=== PATIENT | female | born 2005 | race Caucasian/White ===

== ENCOUNTER 2023-11-07 18:23 | Emergency (ER) | payer OTHER ==
[2023-11-07 18:49] VITALS: BP 142/71; RESP 19; TEMP 99.1; BMI 27.6
[2023-11-07] MEDS ORDERED: AMOX TR/POT CLAV 875MG/125MG TABLETS (FP) ONE (20:47)
[2023-11-07] MEDS: AMOX TR/POT CLAV 875MG/125MG TABLETS (FP) PO ONE (20:48)
[2023-11-07] MEDS: OXYMETAZOLINE 0.05% NASAL SOLUTION 15 ML BOTTLE NS ONE (21:15)
[2023-11-07] MEDS: DEXTROMETHORPHAN/PROMETHAZINE 15 MG/6.25 MG/5 ML SYRUP PO ONE (21:16)
[2023-11-07 21:34] VITALS: PULSE 89
== END 2023-11-07 21:35 | disposition home or self-care (01) ==
LOC: JERFT 18:23
DX: J40 Bronchitis, not specified as acute or chronic (principal); J98.11 Atelectasis; R05.9 Cough, unspecified; Z20.822 Contact with and (suspected) exposure to COVID-19
CPT/HCPCS: 0241U-QW; 71046-TC-FY; 99284-25